=== PATIENT | male | born 1985 | race African-American/Black ===

== ENCOUNTER 2016-10-22 23:30 | Emergency (ER) | payer SELFPAY ==
[~2016-10-22] VITALS: Ht 175.3 cm; Wt 84.0 kg
[~2016-10-22 23:30] MED LIST: ALBU2.5V13 NEB; ALBU6.7H INH
[2016-10-23] MEDS ORDERED: SODIUM CHLORIDE 0.9% 1,000 ML IV ONE ×2 (00:50→02:30)
[2016-10-23] MEDS ORDERED: KETOROLAC 30MG/ML VIAL IV STA (00:50)
[2016-10-23] MEDS ORDERED: ACETAMINOPHEN 325MG TABLET PO STA (00:50)
[2016-10-23 01:06] LABS: BASOPHILS % 0.3 % (0.0-2.0); EOSINOPHILS % 1.1 % (0.0-5.0); HEMATOCRIT. 44.5 % (42.0-52.0); HEMOGLOBIN. 15.6 g/dL (14.0-18.0); LYMPHOCYTES % 13.4 % (20.0-50.0); MEAN CORPUSCULAR HEMOGLOBIN 32.2 pg (28.0-32.0); NEUTROPHILS % 73.2 % (40.0-76.0); PLATELET 227 x1000/uL (130-400); RED BLOOD CELL COUNT 4.84 mill/uL (4.7-6.1); RED CELL DISTRIBUTION WIDTH 13.2 % (11.6-14.6)
[2016-10-23 01:22] LABS: CARBON DIOXIDE 27 mEq/L (21-32); CHLORIDE 104 mEq/L (98-107)
[2016-10-23 04:03] VITALS: BP 132/68
== END 2016-10-23 04:09 | disposition home or self-care (01) ==
LOC: ER 23:30
DX: R07.89 Other chest pain (principal); B34.9 Viral infection, unspecified; J45.909 Unspecified asthma, uncomplicated; F17.210 Nicotine dependence, cigarettes, uncomplicated; F12.10 Cannabis abuse, uncomplicated
CPT/HCPCS: 36415; 71010; 80053; 85025; 93005; 96361; 96374; 99285; J1885; J7030; Z7610